=== PATIENT | male | born 2000 | race American Indian/Alaskan Native ===

== ENCOUNTER 2021-10-23 16:29 | Emergency (ER) | payer OTHER ==
[2021-10-23] MEDS ORDERED: HYDROcodone/ACETAMINOPHEN 5-325 MG TAB PO ONE (20:26)
[2021-10-23] MEDS ORDERED: TETANUS,DIPH,PERTUSS(ACELL) VACCINE 0.5 ML SYRINGE IM ONE (20:26)
--- NOTE | 2021-10-23 20:42 | Emergency Department Report ---
ED Head Trauma HPI - General Chief complaint: Head Injury Stated complaint: HEAD INJURY (LACERATION OF SCALP) Time Seen by Provider: 10/23/21 20:25 Source: patient Mode of arrival: Ambulatory Limitations: No Limitations - History of Present Illness Initial comments: Patient 21-year-old [place] back and have low who presents for occipital scalp laceration. Patient states that he scraped his head on the airplane ladder today causing laceration. There is no LOC, injury was witnessed by colleague who presents to ED via POV. 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 Last tetanus shot is unknown patient describes pain as 4/10 soreness. And 2/10 headache. There is no dizziness no lightheaded no nausea vomiting. There is no neck pain no numbness or tingling. Patient is alert oriented x3 amatory with steady gait. All bleeding is controlled. MD Complaint: head injury - Related Data Previous Rx's Medication Instructions Recorded Last Taken Type Acetaminophen/Codeine [Tylenol 1 tab PO Q6H PRN #12 tab 10/23/21 Unknown Rx /Codeine # 3 tab] Allergies/Adverse reactions: Allergies Allergy/AdvReac Type Severity Reaction Status Date / Time No Known Allergies Allergy Unverified 10/23/21 17:50 ED Review of Systems ROS: Stated complaint: HEAD INJURY (LACERATION OF SCALP) Other details as noted in HPI Constitutional: denies: chills, fever Eyes: denies: eye pain, eye discharge, vision change ENT: denies: ear pain, throat pain Respiratory: denies: cough, shortness of breath, wheezing Cardiovascular: denies: chest pain, palpitations Endocrine: no symptoms reported Gastrointestinal: denies: abdominal pain, nausea, diarrhea Genitourinary: denies: urgency, dysuria Musculoskeletal: denies: back pain, joint swelling, arthralgia Skin: other (Occipital scalp laceration 3 cm) Neurological: headache. denies: weakness, numbness, paresthesias, confusion, vertigo Psychiatric: denies: anxiety, depression Hematological/Lymphatic: denies: easy bleeding, easy bruising ED Past Medical Hx - Social History Smoking Status: Unknown if ever smoked - Medications Home Medications: Home Medications Medication Instructions Recorded Confirmed Last Taken Type Acetaminophen/Codeine [Tylenol 1 tab PO Q6H PRN #12 tab 10/23/21 Unknown Rx /Codeine # 3 tab] ED Physical Exam - General Limitations: No Limitations General appearance: alert, in no apparent distress - Head Head exam: Present: normocephalic, normal inspection - Expanded Head Exam Expanded Head exam: Present: laceration. Absent: abrasion, contusion (Occipital scalp), hematoma - Eye Eye exam: Present: normal appearance, PERRL, EOMI. Absent: conjunctival injection, nystagmus Pupils: Present: normal accommodation - ENT ENT exam: Present: normal orophraynx, mucous membranes moist, TM's normal bilaterally, normal external ear exam - Neck Neck exam: Present: normal inspection, tenderness, full ROM. Absent: meningismus, lymphadenopathy, thyromegaly - Respiratory Respiratory exam: Present: normal lung sounds bilaterally. Absent: respiratory distress, wheezes - Cardiovascular Cardiovascular Exam: Present: regular rate, normal rhythm, normal heart sounds. Absent: systolic murmur, diastolic murmur, rubs, gallop - GI/Abdominal GI/Abdominal exam: Present: soft. Absent: distended, tenderness - Rectal Rectal exam: Present: deferred - Extremities Exam Extremities exam: Present: normal inspection - Back Exam Back exam: Present: normal inspection, full ROM. Absent: paraspinal tenderness, vertebral tenderness - Neurological Exam Neurological exam: Present: alert, oriented X3, CN II-XII intact, normal gait, reflexes normal. Absent: motor sensory deficit - Expanded Neurological Exam Expanded Patient oriented to: Present: person, place, time Speech: Present: fluid speech Cranial nerves: EOM's Intact: Normal, Gag Reflex: Normal, Tongue Deviation: Normal Motor strength exam: RUE: 5, LUE: 5, RLE: 5, LLE: 5 Best Eye Response (Isela): (4) open spontaneously Best Motor Response (I[place]): (6) obeys commands Best Verbal Response ([place]a): (5) oriented [place] Total: 15 - Psychiatric Psychiatric exam: Present: normal affect, normal mood - Skin Skin exam: Present: warm, dry, intact, normal color, other (Laceration as above occipital scalp). Absent: rash ED Course Vital Signs 10/23/21 17:48 Temperature 99.4 F Pulse Rate 86 Respiratory 18 Rate Blood Pressure 130/67 [Left] - Laceration /Wound Repair Right Head Wound Location: head (Right occipital scalp 3 cm laceration) Wound Length (cm): 3 Wound's Depth, Shape: superficial Wound Explored: clean Irrigated w/ Saline (ccs): 20 Betadine Prep?: No Wound Repaired With: sutures (Stable x7 ) Sterile Dressing Applied?: No (NESTOR) Progress: Right occipital scalp laceration site cleaned sterile saline irrigated with 20 cc sterile saline site closed with shawnee times edges well approximated bleeding is controlled. Patient tolerated with minimal distress. Patient given wound care instruction including follow-up primary care doctor in 2 days for wound check. And return in 7 to 10 days for staple removal. Patient verbalized agreement understanding of discharge plan. There is no crepitus no step-off no deformity. - Medical Decision Making Fabian laceration see procedure note. Patient given close head injury precautions verbalized understanding of same. Patient melodie alert oriented x3 amatory steady gait with no acute distress. Patient DC'd home in stable condition at this time. Patient will follow-up with occupational health doctor as directed by her employee. She will return to ED should symptoms worsen. - NEXUS Criteria Focal neurological deficit present: No Midline spinal tenderness present: No Altered level of consciousness: No Intoxication present: No Distracting injury present: No NEXUS results: C-Spine can be cleared clinically by these results. Imaging is not required. Critical care attestation.: If time is entered above; I have spent that time in minutes in the direct care of this critically ill patient, excluding procedure time. ED Disposition Clinical Impression: Minor head injury Qualifiers: Encounter type: initial encounter Qualified Code(s): S09.90XA - Unspecified injury of head, initial encounter Scalp laceration Qualifiers: Encounter type: initial encounter Qualified Code(s): S01.01XA - Laceration without foreign body of scalp, initial encounter Disposition: 01 HOME / SELF CARE / HOMELESS Is pt being admited?: No Does the pt Need Aspirin: No Condition: Stable Instructions: Sutures, [place], or Adhesive Wound Closure, Head Injury, Adult, [id number] Additional Instructions: Take medications as prescribed, follow-up with your doctor in 2 days for wound check. Return in 7 to 10 days for staple removal. Follow-up with your Workmen's Comp. doctor as directed by your employer. Return to emergency should symptoms worsen. Prescriptions: Acetaminophen/Codeine [Tylenol /Codeine # 3 tab] 1 tab PO Q6H PRN #12 tab PRN Reason: pain Referrals: ROLAND LEE MD [Staff Physician] - 3-5 Days Forms: Work/School Release Form(ED) Time of Disposition: 20:48
[2021-10-23 21:02] VITALS: BP 124/63
== END 2021-10-23 21:38 | disposition home or self-care (01) ==
LOC: ED 16:29
DX: S01.01XA Laceration without foreign body of scalp, initial encounter (principal); X58.XXXA Exposure to other specified factors, initial encounter; Y93.89 Activity, other specified; Y92.89 Other specified places as the place of occurrence of the external cause; Y99.8 Other external cause status
CPT/HCPCS: 90471; 90715; 99282